=== PATIENT | female | born 1930 | race Caucasian/White ===

== ENCOUNTER 2016-06-29 17:06 | Emergency (ER) | payer MEDICARE, BC | END 2016-06-29 19:10 | disposition home or self-care (01) | LOC: ER 17:06 | DX: K57.30 Diverticulosis of large intestine without perforation or abscess without bleeding (principal); R35.0 Frequency of micturition; F32.9 Major depressive disorder, single episode, unspecified; K21.9 Gastro-esophageal reflux disease without esophagitis; E78.00 Pure hypercholesterolemia, unspecified; E03.9 Hypothyroidism, unspecified; F41.9 Anxiety disorder, unspecified; Z79.899 Other long term (current) drug therapy; Z88.2 Allergy status to sulfonamides; Z88.8 Allergy status to other drugs, medicaments and biological substances | CPT/HCPCS: 36415; 96361; 96374; 96375; 96376 ==